=== PATIENT | male | born 1945 | race Caucasian/White ===

== ENCOUNTER 2018-03-25 23:44 | Observation (INO) ==
[2018-03-26 00:12] LABS: Basophils # 0.1 K/mcL (0.0-0.2); Basophils % 0.5 %; Eosinophils # 0.2 K/mcL (0.0-0.6); Eosinophils % 1.3 %; Hematocrit 48.7 % (37.5-50.1); Hemoglobin 17.3 g/dL (12.9-16.9); Immature Granulocytes % 0.4 % (0-4); Lymphocytes # 2.1 K/mcL (0.6-4.6); Lymphocytes % 12.2 %; Mean Corpuscular HGB Conc 35.5 g/dL (31.6-35.5); Mean Corpuscular Hemoglobin 29.9 pg (28.0-33.3); Mean Corpuscular Volume 84.3 fL (83.0-100.0); Mean Platelet Volume 10.5 fL (9.4-12.4); Monocytes # 1.5 K/mcL (0.0-1.3); Monocytes % 8.7 %; Neutrophils # 13.1 K/mcL (1.6-8.9); Platelet Count 237 K/mcL (140-400); Red Blood Count 5.78 M/mcL (4.19-5.50); Red Cell Distribution Width 12.8 % (11.5-14.5); Segmented Neutrophils % 76.9 %
[2018-03-26 00:33] LABS: BUN/Creatinine Ratio 13 (6-26); Blood Urea Nitrogen 17 mg/dL (8-23); Calcium 10.6 mg/dL (8.6-10.3); Carbon Dioxide 22 mEq/L (23-29); Chloride 97 mEq/L (98-107); Glucose 264 mg/dL (70-105); Osmolality,Calculated 291 (280-300); Sodium 135 mEq/L (136-145); eGFR For Non-African Americans 53 (> 60)
[2018-03-26 00:34] LABS: Troponin I < 0.03 ng/mL (< 0.04)
[2018-03-26] MEDS ORDERED: Ondansetron 4 MG/2 ML VIAL IVP ONE ×2 (01:21→02:40)
[2018-03-26] MEDS ORDERED: 0.9 % Sodium Chloride 1,000 ML IVC ONE (01:22)
--- NOTE | 2018-03-26 02:08 | Emergency Department Note ---
Disposition Clinical Impression: Abnormal ultrasound of gallbladder, Hyperbilirubinemia Nausea & vomiting Qualifiers: Vomiting type: unspecified Vomiting Intractability: unspecified Qualified Code( s): R11.2 - Nausea with vomiting, unspecified Disposition: Admitted As Inpatient Condition: Good Time of Disposition: 04:00 General Adult HPI - General Chief complaint: ED Chest Pain Stated complaint: cp/vomiting Time Seen by Provider: 03/26/18 00:28 Source: patient Limitations: no limitations Nursing Notes Reviewed: Yes Vital Signs Reviewed: Yes - History of Present Illness HPI Narrative: 73-year-old male history of CAD s/p stent 2009, diabetes presents an emergency department with complaining of chest pain and vomiting. States the symptoms started roughly 4 days ago reports of nausea with nonbilious nonbloody vomiting. Afterwards he began developing sharp burning sensation to the midsternal similar to his reflux. Sometimes it feels like something is stuck. He denies choking episode for eating anything abnormal. Nothing seems to make it better or worse. He states over the past several days he has been unable to keep anything down. Meals do not seem to make his pain worse. He does report some diarrhea as well. Denies any fever chills. No prior's abdominal surgeries. He denies any shortness of breath. He is unsure if this is similar to his prior myocardial infarction. He denies any history of blood clots, recent long-distance travel, hospitalization or surgery. Pain Scale: 8 - Related Data Home Medications Medication Instructions Recorded Confirmed Aspirin [Lo-Dose Aspirin EC] 81 mg PO DAILY 03/26/18 03/26/18 Benazepril HCl [Lotensin] 20 mg PO DAILY 03/26/18 03/26/18 Insulin ASPART [Novolog] 25 unit SQ QID 03/26/18 03/26/18 Insulin Glargine [Lantus] 35 unit SQ DAILY 03/26/18 03/26/18 Metoprolol [Lopressor] 25 mg PO DAILY 03/26/18 03/26/18 Simvastatin [Zocor] 10 mg PO DAILY 03/26/18 03/26/18 cloNIDine HCl [CloNIDine HCl] 0.1 mg PO DAILY 03/26/18 03/26/18 Allergies Allergy/AdvReac Type Severity Reaction Status Date / Time No Known Allergies Allergy Verified 03/25/18 23:53 All systems ED: reviewed and negative except as stated. Review of Systems: As Per HPI Constitutional: Denies: fever, chills, weakness Cardiovascular: Reports: chest pain. Denies: palpitations, dyspnea on exertion Respiratory: Denies: dyspnea Gastrointestinal: Reports: nausea, vomiting, diarrhea. Denies: abdominal pain, hematemesis, melena, hematochezia Genitourinary: Denies: urgency, dysuria Musculoskeletal: Denies: back pain Integumentary: Denies: rash Past Medical History - Past Medical History Attestation: Yes The following information was validated with the patient. Source: patient Medical history: Reports: cancer, CHF, coronary artery disease, diabetes, glaucoma, hypertension Surgical history: Reports: orthopedic, other Psychiatric history: Reports: no psych history - Social History Smoking Status: Former smoker Alcohol use: Reports: none Drug use: Reports: none Physical Exam - General Limitations: no limitations General appearance: alert, in no apparent distress, obese - Head Head exam: atraumatic, normocephalic, normal inspection - Eye Eye exam: Present: normal appearance, PERRL, EOMI. Absent: scleral icterus - ENT ENT exam: normal exam, normal oropharynx, mucous membranes moist - Neck Neck exam: Present: normal inspection, full ROM, trachea midline - Chest Chest inspection: Present: normal inspection, symmetric chest wall rise - Respiratory Respiratory exam: Present: normal lung sounds bilaterally. Absent: respiratory distress, wheezes - Cardiovascular Cardiovascular exam: Present: normal rhythm, tachycardia, normal heart sounds - Expanded Cardiovascular Exam Peripheral pulses: 2+: radial (R), radial (L) - Abdominal Exam Abdominal exam: Present: soft (Protuberant), Non-Tender, normal bowel sounds. Absent: tenderness, distention, guarding, rebound, rigidity, Godoy's sign, tenderness at McBurney's Point Abdominal tenderness: Absent: RUQ, epigastrium - Extremities Exam Extremities exam: Present: normal inspection, full ROM, normal capillary refill. Absent: tenderness, pedal edema - Back Exam Back exam: Present: normal inspection, full ROM. Absent: tenderness, CVA tenderness (R), CVA tenderness (L) - Neurological Exam Neurological exam: Present: alert, oriented X3 - Psychiatric Psychiatric exam: Present: normal affect, normal mood - Skin Skin exam: Present: warm, dry, intact, normal color. Absent: rash, cyanosis, diaphoresis Course Course Narrative: Patient presents with nonspecific complaints of nausea vomiting and associated chest discomfort. He has been unable to keep anything down including liquids over the past 4 days. He has had some associated diarrhea as well. No sick contacts or recent travel. No shortness of breath or abdominal pain. Not worsened after meals. On examination he is afebrile but tachycardic. His heart 's regular rate and rhythm. Abdomen is protuberant otherwise soft note extension or tenderness. Chest pain workup initiated. - Reevaluation(s) Reevaluation #1: EKG does not reveal any acute ischemic changes. Troponin is less than 0.03. He has some underlying renal insufficiency that appears at baseline. No significant electrolyte abnormalities. He does have a mild leukocytosis. Bedside ultrasound was performed in the presence of ED attending Dr. Salazar which revealed mildly thickened anterior gallbladder wall 4 mm and a large amount of gravel in the gallbladder. Negative sonographic Godoy sign. No pericholecystic fluid observed. Do not suspect acute cholecystitis as he does not have any abdominal discomfort, fever, or pain in the area. The nausea and vomiting could be caused by this or gastroenteritis. At this time do not suspect his symptoms to be cardiopulmonary in nature. Given his hyperbilirubinemia 1.4 in the absence of LFT or alk phos elevation, recommend an urgent formal ultrasound to better evaluate the gallbladder. CT scan would not be of benefit as he does not have any abdominal pain and would provide any additional information regarding the gallbladder. - Consultations Consultation #1: Spoke with on-call hospitalist reji Bowman to admit for nausea vomiting, abnormal gallbladder ultrasound and hyperbilirubinemia. Recommend formal ultrasound evaluation and likely surgical evaluation. Patient is not febrile and does not have any abdominal pain and godoy sign to suggest acute cholecystitis to warrant initiation of antibiotics at this time. No further orders at this time Vital Signs Temperature 97.9 F 03/25/18 23:49 Pulse Rate 113 03/25/18 23:49 Respiratory Rate 20 03/25/18 23:49 Blood Pressure 137/88 03/25/18 23:49 O2 Sat by Pulse Oximetry 95 03/25/18 23:49 Temperature 97.9 F 03/25/18 23:49 Pulse Rate 108 03/26/18 02:50 Respiratory Rate 16 03/26/18 04:41 Blood Pressure 106/86 03/26/18 04:41 O2 Sat by Pulse Oximetry 93 03/26/18 02:50 Oxygen Delivery Oxygen Delivery Room Air Medical Decision Making - MDM Narrative Medical decision making narrative: Patient was discussed with my attending physician who agrees with ED management and final disposition. They independently evaluated the patient. Please refer to their attestation to this encounter for additional information. This note was generated by [employer] voice recognition software and as a result grammatical or spelling errors may occur using this program. - Medical Records Medical records reviewed: Yes I reviewed the patient's medical records. - Lab Data Lab results reviewed: Yes I reviewed the patient's lab results. Result diagrams: 03/26/18 00:01 03/26/18 00:01 Lab Results 03/26/18 03/26/18 03/26/18 Range/Units 00:01 00:01 03:00 WBC 17.0 H (4.3-11.1) K/mcL RBC 5.78 H (4.19-5.50) M/mcL Hgb 17.3 H (12.9-16.9) g/dL Hct 48.7 (37.5-50.1) % MCV 84.3 (83.0-100.0) fL MCH 29.9 (28.0-33.3) pg MCHC 35.5 (31.6-35.5) g/dL RDW 12.8 (11.5-14.5) % Plt Count 237 (140-400) K/mcL MPV 10.5 (9.4-12.4) fL Immature Gran % 0.4 (0-4) % Seg Neutrophils % 76.9 % Lymphocytes % 12.2 % Monocytes % 8.7 % Eosinophils % 1.3 % Basophils % 0.5 % Neutrophils # 13.1 H (1.6-8.9) K/mcL Lymphocytes # 2.1 (0.6-4.6) K/mcL Monocytes # 1.5 H (0.0-1.3) K/mcL Eosinophils # 0.2 (0.0-0.6) K/mcL Basophils # 0.1 (0.0-0.2) K/mcL Sodium 135 L (136-145) mEq/L Potassium 4.0 (3.5-5.1) mEq/L Chloride 97 L (98-107) mEq/L Carbon Dioxide 22 L (23-29) mEq/L BUN 17 (8-23) mg/dL Creatinine 1.33 H (0.70-1.30) mg/dL Est GFR ( Amer) > 60 (> 60) Est GFR (Non-Af Amer) 53 L (> 60) BUN/Creatinine Ratio 13 (6-26) Glucose 264 H (70-105) mg/dL Calculated Osmolality 291 (280-300) Calcium 10.6 H (8.6-10.3) mg/dL Total Bilirubin 1.4 H (0.3-1.0) mg/dL Direct Bilirubin 0.3 H (0.0-0.2) mg/dL Indirect Bilirubin 1.1 (0.0-1.2) mg/dL AST 18 (13-39) Units/L ALT 18 (7-52) Units/L Alkaline Phosphatase 95 (34-104) Units/L Troponin I < 0.03 (< 0.04) ng/mL Serum Total Protein 6.8 (6.4-8.9) g/dL Albumin 4.3 (3.5-5.7) g/dL Globulin 2.5 (2.4-3.5) g/dL Albumin/Globulin Ratio 1.7 (1.1-2.2) Lipase 83 H (11-82) Units/L Urine Color Dark Yellow (Yellow) Urine Clarity Clear (Clear) Urine pH 6.0 (5.0-8.0) pH Units Ur Specific [place] 1.028 H (1.010-1.025) Urine Protein 30 H (Neg-Trace) mg/dL Urine Glucose (UA) 500 H (Normal) mg/dL Urine Ketones 40 H (Negative) mg/dL Urine Blood Negative (Negative) Urine Nitrite Negative (Negative) Urine Bilirubin Small H (Negative) Urine Urobilinogen Normal (Normal) mg/dL Ur Leukocyte Esterase Negative (Negative) Urine Microscopic RBC 5-15 H (0-3) per hpf Urine Microscopic WBC 0-3 (0-3) per hpf Ur Squamous Epith Cells Moderate H (None-Few) per lpf Urine Bacteria None Seen (None-Few) per hpf Hyaline Casts None Seen (None-Few) per lpf Ur Culture Indicated? NO (NO) - Radiology Data Radiology results reviewed: Yes I reviewed the patient's radiology results. Chest X-Ray 03/26/18 23:53 IMPRESSION: Stable mild cardiomegaly. Clear lungs. D/ / Adi Lizarraga MD / Adi Lizarraga MD Interpreting Provider: Adi Lizarraga MD - EKG Data EKG #1 EKG attestation: Yes I reviewed and interpreted this EKG. EKG results narrative: EKG performed 2350 tachycardia 115 beats per minute, old Q waves in inferior leads, no ST elevation or depression, AR interval 210, compared to prior EKG performed 05/23/2010 shows similar findings of a first-degree AV block AR interval 236, no acute ischemic changes. Q waves appears consistent prior EKG.
[2018-03-26 02:13] LABS: Lipase 83 Units/L (11-82)
--- NOTE | 2018-03-26 02:46 | Emergency Department Note ---
Disposition Clinical Impression: Abnormal ultrasound of gallbladder, Hyperbilirubinemia Nausea & vomiting Qualifiers: Vomiting type: unspecified Vomiting Intractability: unspecified Qualified Code( s): R11.2 - Nausea with vomiting, unspecified Disposition: Admitted As Inpatient Condition: Good General Adult HPI - General Chief complaint: ED Chest Pain Stated complaint: cp/vomiting Time Seen by Provider: 03/26/18 00:28 Source: patient Limitations: no limitations - History of Present Illness Pain Scale: 8 - Related Data Home Medications Medication Instructions Recorded Confirmed Aspirin [Lo-Dose Aspirin EC] 81 mg PO DAILY 03/26/18 03/26/18 Benazepril HCl [Lotensin] 20 mg PO DAILY 03/26/18 03/26/18 Ergocalciferol (VITAMIN D2) 50,000 unit PO MO 03/26/18 03/26/18 [Drisdol (50,000 Unit)] Insulin ASPART [Novolog] 30 unit SQ QID 03/26/18 03/26/18 Insulin DETEMIR [Levemir Flextouch] 35 unit SQ HS 03/26/18 03/26/18 Metoprolol Succinate [Toprol Xl] 25 mg PO DAILY 03/26/18 03/26/18 Simvastatin [Zocor] 10 mg PO DAILY 03/26/18 03/26/18 amLODIPine [Norvasc] 5 mg PO DAILY 03/26/18 03/26/18 cloNIDine HCl [CloNIDine HCl] 0.1 mg PO BID 03/26/18 03/26/18 Previous Rx's Medication Instructions Recorded Omeprazole [PriLOSEC] 20 mg PO DAILY@0630 #30 capsule. 03/27/18 Allergies Allergy/AdvReac Type Severity Reaction Status Date / Time No Known Allergies Allergy Verified 03/26/18 14:34 Past Medical History - Past Medical History Medical history: Reports: cancer, CHF, coronary artery disease, diabetes, glaucoma, hypertension Surgical history: Reports: orthopedic, other Psychiatric history: Reports: no psych history - Social History Smoking Status: Former smoker Alcohol use: Reports: none Drug use: Reports: none Physical Exam - General Limitations: no limitations General appearance: alert, in no apparent distress Course Vital Signs Temperature 97.9 F 03/25/18 23:49 Pulse Rate 113 03/25/18 23:49 Respiratory Rate 20 03/25/18 23:49 Blood Pressure 137/88 03/25/18 23:49 O2 Sat by Pulse Oximetry 95 03/25/18 23:49 Temperature 99.2 F 03/27/18 12:03 Pulse Rate 67 03/27/18 12:03 Respiratory Rate 18 03/27/18 12:03 Blood Pressure 124/75 03/27/18 12:03 O2 Sat by Pulse Oximetry 95 03/27/18 12:03 Oxygen Delivery Oxygen Delivery Room Air Medical Decision Making - Lab Data Result diagrams: 03/27/18 01:11 03/27/18 01:11 Lab Results 03/26/18 03/26/18 03/26/18 Range/Units 00:01 00:01 03:00 WBC 17.0 H (4.3-11.1) K/mcL RBC 5.78 H (4.19-5.50) M/mcL Hgb 17.3 H (12.9-16.9) g/dL Hct 48.7 (37.5-50.1) % MCV 84.3 (83.0-100.0) fL MCH 29.9 (28.0-33.3) pg MCHC 35.5 (31.6-35.5) g/dL RDW 12.8 (11.5-14.5) % Plt Count 237 (140-400) K/mcL MPV 10.5 (9.4-12.4) fL Immature Gran % 0.4 (0-4) % Seg Neutrophils % 76.9 % Lymphocytes % 12.2 % Monocytes % 8.7 % Eosinophils % 1.3 % Basophils % 0.5 % Neutrophils # 13.1 H (1.6-8.9) K/mcL Lymphocytes # 2.1 (0.6-4.6) K/mcL Monocytes # 1.5 H (0.0-1.3) K/mcL Eosinophils # 0.2 (0.0-0.6) K/mcL Basophils # 0.1 (0.0-0.2) K/mcL Sodium 135 L (136-145) mEq/L Potassium 4.0 (3.5-5.1) mEq/L Chloride 97 L (98-107) mEq/L Carbon Dioxide 22 L (23-29) mEq/L BUN 17 (8-23) mg/dL Creatinine 1.33 H (0.70-1.30) mg/dL Est GFR ( Amer) > 60 (> 60) Est GFR (Non-Af Amer) 53 L (> 60) BUN/Creatinine Ratio 13 (6-26) Glucose 264 H (70-105) mg/dL Calculated Osmolality 291 (280-300) Calcium 10.6 H (8.6-10.3) mg/dL Total Bilirubin 1.4 H (0.3-1.0) mg/dL Direct Bilirubin 0.3 H (0.0-0.2) mg/dL Indirect Bilirubin 1.1 (0.0-1.2) mg/dL AST 18 (13-39) Units/L ALT 18 (7-52) Units/L Alkaline Phosphatase 95 (34-104) Units/L Troponin I < 0.03 (< 0.04) ng/mL Serum Total Protein 6.8 (6.4-8.9) g/dL Albumin 4.3 (3.5-5.7) g/dL Globulin 2.5 (2.4-3.5) g/dL Albumin/Globulin Ratio 1.7 (1.1-2.2) Lipase 83 H (11-82) Units/L Urine Color Dark Yellow (Yellow) Urine Clarity Clear (Clear) Urine pH 6.0 (5.0-8.0) pH Units Ur Specific [place] 1.028 H (1.010-1.025) Urine Protein 30 H (Neg-Trace) mg/dL Urine Glucose (UA) 500 H (Normal) mg/dL Urine Ketones 40 H (Negative) mg/dL Urine Blood Negative (Negative) Urine Nitrite Negative (Negative) Urine Bilirubin Small H (Negative) Urine Urobilinogen Normal (Normal) mg/dL Ur Leukocyte Esterase Negative (Negative) Urine Microscopic RBC 5-15 H (0-3) per hpf Urine Microscopic WBC 0-3 (0-3) per hpf Ur Squamous Epith Cells Moderate H (None-Few) per lpf Urine Bacteria None Seen (None-Few) per hpf Hyaline Casts None Seen (None-Few) per lpf Ur Culture Indicated? NO (NO) Attestation Statement - Attestation Attestation: I examined this patient and my medical decision-making was reviewed with the Resident Physician. I agree with the documented findings, disposition and treatment plan as described except to the extent set forth below. He has had 3 days of nausea and vomiting with chest pain that started after the vomiting. No hematemesis. He is not really sure whether this is similar to his prior heart attack. Pain is not postprandial. He has been unable to keep food down and has had trouble keeping liquids down as well. Procedure, emergency bedside ultrasound of the gallbladder: Procedure performed by me, images obtained and interpreted by me. Multiple images of the gallbladder were obtained in the longitudinal and transverse planes showing a dilated gallbladder with a transverse diameter of approximately 5.5 cm. Gallbladder wall is mildly thickened a just over 4 mm. There is what appears to be a moderate amount of gravel in the neck of the gallbladder, although it does not shadow. Gallbladder mass is not excluded. Negative sonographic Godoy sign. The common bile duct was not well visualized. We attempted a volume assessment to assess for his hydration status, but were unable to get adequate images due to a large amount of overlying bowel gas interfering with visualization of the IVC.
[2018-03-26 02:53] LABS: Alanine Aminotransferase 18 Units/L (7-52); Albumin 4.3 g/dL (3.5-5.7); Albumin/Globulin Ratio 1.7 (1.1-2.2); Alkaline Phosphatase 95 Units/L (34-104); Aspartate Amino Transferase 18 Units/L (13-39); Bilirubin,Direct 0.3 mg/dL (0.0-0.2); Bilirubin,Indirect 1.1 mg/dL (0.0-1.2); Bilirubin,Total 1.4 mg/dL (0.3-1.0); Globulin 2.5 g/dL (2.4-3.5); Total Protein 6.8 g/dL (6.4-8.9)
[2018-03-26 03:10] LABS: Bilirubin,Urine Small (Negative); Blood,Urine Negative (Negative); Clarity,Urine Clear (Clear); Color,Urine Dark Yellow (Yellow); Glucose,Urine (UA) 500 mg/dL (Normal); Ketones,Urine 40 mg/dL (Negative); Leukocyte Esterase,Urine Negative (Negative); Nitrite,Urine Negative (Negative); Protein,Urine 30 mg/dL (Neg-Trace); Specific Gravity,Urine 1.028 (1.010-1.025); Urobilinogen,Urine Normal (Normal)
[2018-03-26 03:13] LABS: Bacteria,Urine None Seen per hpf (None-Few); Hyaline Casts,Urine None Seen per lpf (None-Few); Squamous Epithelial Cell,Urine Moderate per lpf (None-Few); WBC,Urine 0-3 per hpf (0-3)
--- NOTE | 2018-03-26 05:33 | Internal Med History&Physical ---
<DestinycarlosCesar - Last Filed: 03/26/18 06:54> Date of Encounter: 03/26/18 Time of Encounter: 05:31 Internal Medicine - H&P: HPI Chief complaint: N/V Admitted From: Home History of present illness: Mr. Maxwell is a 73 year old male with a PMH of hypertension, diastolic CHF , CAD status post cardiac stents in 2009, CKD stage III, GERD, and type 2 diabetes mellitus who presents complaining of chest pain, nausea, and vomiting for the past 4 days. Chest pain is located in the substernal and epigastric region and feels like a burning sensation. Nothing makes it better, he has been unable to keep any food or water down, and meals do not seem to make his pain worse. Emesis is non-bilious, non-bloody, and sometimes feels like it gets stuck in his esophagus. Patient has a history of acid reflux but denies previous EGD. He denies associated fever, chills, SOB, hematemesis, hematochezia, leg edema, recent illness, or history of choking in the past. Last colonoscopy was performed 10/10/15 which revealed diverticulosis and five transverse and ascending colon polyps. Past Med Surg Social Fam HX - Past Medical History Medical history: cancer, CHF, coronary artery disease, diabetes, glaucoma, hypertension Additional medical history: melanoma. sleep apnea Psychiatric history: no psych history - Past Surgical History Surgical History: orthopedic, other (shoulder, knee) Additional surgical history: heart cath with stent x1 in 2009 - Social History Smoking Status: Former smoker Alcohol use: none Drug use: none Activity Level: Independent ambulation - Family History Mother Hx Family Cardiac Disorders: Yes (CHF) Hx Family Endocrine Disorder: Yes (Diabetes) Father Hx Family Neurologic Disorders: Yes (CVA/ brain aneurysm) Internal Medicine - H&P: Meds Aspirin [Lo-Dose Aspirin EC] 81 mg PO DAILY 03/26/18 [History] Benazepril HCl [Lotensin] 20 mg PO DAILY 03/26/18 [History] Insulin ASPART [Novolog] 25 unit SQ QID 03/26/18 [History] Insulin Glargine [Lantus] 35 unit SQ DAILY 03/26/18 [History] Metoprolol Succinate [Toprol Xl] 25 mg PO DAILY 03/26/18 [History] Simvastatin [Zocor] 10 mg PO DAILY 03/26/18 [History] cloNIDine HCl [CloNIDine HCl] 0.1 mg PO DAILY 03/26/18 [History] 3 Allergy/AdvReac Type Severity Reaction Status Date / Time No Known Allergies Allergy Verified 03/25/18 23:53 All Systems PM: A 10-system review of systems was performed and is negative for pertinent findings except as documented above in the HPI. - Constitutional Constitutional: anorexia, no chills, no fatigue, no fever(s), no lethargy, no weakness, no weight gain, no weight loss - EENT Eyes: no blurry vision, no diplopia Nose, mouth and throat: dysphagia, no sinus pain, no sore throat - Cardiovascular Cardiovascular ROS IM: chest pain, no diaphoresis, no dyspnea, no orthopnea, no palpitations, no paroxysmal nocturnal dyspnea - Respiratory Respiratory: no cough, no dyspnea, no chest congestion - Gastrointestinal Gastrointestinal: abdominal pain, dyspepsia, dysphagia, heartburn, nausea, vomiting, no hematemesis, no hematochezia, no melena - Genitourinary Genitourinary ROS male: no nocturia, no urinary frequency, no urinary urgency - Musculoskeletal Musculoskeletal ROS IM: no arthralgias, no back pain, no numbness, no tingling - Integumentary Integumentary IM: no erythema, no new lesions, no rash - Neurological Neurological ROS: no confusion, no dizziness, no numbness, no tingling - Psychiatric Psychiatric: no anxiety, no depression - Endocrine Endocrine IM: no fatigue, no polydipsia, no polyphagia, no polyuria - Constitutional Vitals: Temp Pulse Resp BP Pulse Ox 97.9 F 108 16 106/86 93 03/25/18 23:49 03/26/18 02:50 03/26/18 04:41 03/26/18 04:41 03/26/18 02:50 General appearance: Present: cooperative, mild distress, A&O X 3, pleasant, obese, answers questions appropriately - Head Head exam: Present: atraumatic, normocephalic - Eye Eye exam: Present: PERRL, conjuntiva pink, sclera anicteric Pupils: Present: PERRL - ENT ENT exam: Present: mucous membranes dry, normal oropharynx - Neck Neck exam general surgery: Present: supple, trachea midline. Absent: lymphadenopathy - Respiratory Respiratory exam: Present: CTAB. Absent: accessory muscle use, rales, rhonchi, wheezes - Cardiovascular Cardiovascular exam: Present: RRR, +S1, +S2. Absent: diastolic murmur, gallop, rubs, systolic murmur - GI/Abdominal GI/Abdominal exam: Present: normal bowel sounds, soft, no peritoneal signs. Absent: distended, guarding, tenderness - Expanded GI/Abdominal Exam GI/Abdominal exam expanded: Absent: Godoy's sign - Extremities Exam Extremities exam: Present: normal capillary refill, normal inspection, warm, radial pulses palpable and symmetrical. Absent: calf tenderness, cyanotic, pedal edema - Back Exam Back exam: Present: normal inspection. Absent: paraspinal tenderness, tenderness - Neurological Exam Neurological exam: Present: alert, CN II-XII intact, oriented X3, no focal deficits. Absent: pronater drift, facial droop, speech deficit - Psychiatric Psychiatric exam: Present: normal affect, normal mood - Skin Skin exam: Present: dry, intact, normal color, warm Internal Med - H&P Results - Labs CBC & Chem 7: 03/26/18 00:01 03/26/18 00:01 - Pulse Oximetry Interpretation Digit-Finger O2 Sat by Pulse Oximetry: 93 (On room air) - EKG Data -: EKG Interpreted by Myself EKG shows normal: sinus rhythm Rate: tachycardia (HR 115 bpm, old Q waves in inferior leads, no ST elevation or depression, 1st degree AV block MD interval 210) - EKG Data Prior EKG available for review: yes When compared to previous EKG: there is no significant change - Impressions ITS Impressions Chest X-Ray 03/26/18 23:53 IMPRESSION: Stable mild cardiomegaly. Clear lungs. D/ / Adi Lizarraga MD / Adi Lizarraga MD Interpreting Provider: Adi Lziarraga MD - Assessment and plan (1) Chest pain, rule out acute myocardial infarction Current Visit: Yes Status: Acute Assessment and plan: Diabetic patient with CAD and HTN present with chest pain Initial troponin < 0.03 Trend serial troponins Lipid panel 11/18/17 WNL Continue ASA, statin, and beta leticia Telemetry monitoring Continue close monitoring (2) CAD (coronary artery disease) Current Visit: No Status: Chronic Assessment and plan: Patient had cardiac stent in 2009 Continue home meds Qualifiers: Coronary Disease-Associated Artery/Lesion type: [place] artery [place] vs. transplanted heart: [place] heart Associated angina: angina presence unspecified Qualified Code(s): I25.10 - Atherosclerotic heart disease of [place] coronary artery without angina pectoris (3) Diastolic CHF Current Visit: No Status: Chronic Assessment and plan: Not in acute exacerbation Echo 06/01/15 revealed LVEF 55-60%, mild distolic dysfunction of the LV, mildly enlarged left atrial size, mild pulmonic regurgitation Continue gentle hydration Measure daily weight, input and output Qualifiers: Heart failure chronicity: chronic Qualified Code(s): I50.32 - Chronic diastolic (congestive) heart failure (4) GERD (gastroesophageal reflux disease) Current Visit: Yes Status: Chronic Assessment and plan: Patient has a history of acid reflux but denies previous EGD. Continue PPI Speech therapy consult foe swallow evaluation due to patient feeling something getting caught in his throat Consider GI consult for EGD if symptoms persist/ worsen Qualifiers: Esophagitis presence: esophagitis presence not specified Qualified Code(s) : K21.9 - Gastro-esophageal reflux disease without esophagitis (5) Thickening of wall of gallbladder Current Visit: Yes Status: Acute Assessment and plan: Total bilirubin level 1.4 Bedside ultrasound of the gallbladder by the emergency room physician revealed a dilated gallbladder with a transverse diameter of approximately 5.5 cm. Gallbladder wall is mildly thickened a just over 4 mm. There is what appears to be a moderate amount of gravel in the neck of the gallbladder, although it does not shadow. Gallbladder mass is not excluded. Negative sonographic Godoy sign. The common bile duct was not well visualized. RUQ ultrasound pending Continue antiemetics (6) Diverticulosis Current Visit: No Status: Chronic Assessment and plan: Last colonoscopy was performed 10/10/15 which revealed diverticulosis and five transverse and ascending colon polyps. Qualifiers: Diverticulosis site: diverticulosis of large intestine Diverticulosis bleeding: diverticulosis without bleeding Qualified Code(s): K57.30 - Diverticulosis of large intestine without perforation or abscess without bleeding (7) DM type 2 (diabetes mellitus, type 2) Current Visit: Yes Status: Chronic Assessment and plan: HGB a1c level 7.4 on 10/31/17 Continue accucheck q6h while NPO Continue basal and high dose SSI Continue monitoring Qualifiers: Diabetes mellitus senior care insulin use: with senior care use Diabetes mellitus complication status: with kidney complications Diabetes mellitus complication detail: with chronic kidney disease Chronic kidney disease stage : stage 3 (moderate) Qualified Code(s): E11.22 - Type 2 diabetes mellitus with diabetic chronic kidney disease; N18.3 - Chronic kidney disease, stage 3 ( moderate); Z79.4 - joint terminal attack controller (current) use of insulin (8) HTN (hypertension) Current Visit: No Status: Chronic Assessment and plan: Continue home meds Qualifiers: Hypertension type: essential hypertension Qualified Code(s): I10 - Essential (primary) hypertension (9) CKD (chronic kidney disease), stage III Current Visit: Yes Status: Chronic Assessment and plan: Renal function at baseline Avoid nephrotoxins Continue gentle hydration (10) Obesity (BMI 30-39.9) Current Visit: No Status: Chronic Assessment and plan: Lifestyle modification (11) DVT prophylaxis Current Visit: Yes Status: Acute Assessment and plan: Heparin subQ TID - Time Spent With Patient Total time spent is greater than 50% in coordination of care (as documented) at patient's floor/unit and/or counseling patient: <Satnam Fitzgerald P - Last Filed: 03/26/18 07:23> Date of Encounter: 03/26/18 Internal Medicine - H&P: HPI History of present illness: Mr. Maxwell is a 73 year old male All Systems PM: A 10-system review of systems was performed and is negative for pertinent findings except as documented above in the HPI. - Constitutional Vitals: Temp Pulse Resp BP Pulse Ox 98.8 F 109 16 131/82 94 03/26/18 06:52 03/26/18 06:52 03/26/18 06:52 03/26/18 06:52 03/26/18 06:52 Internal Med - H&P Results - Labs CBC & Chem 7: 03/26/18 00:01 03/26/18 00:01 - Impressions ITS Impressions Chest X-Ray 03/26/18 23:53 IMPRESSION: Stable mild cardiomegaly. Clear lungs. D/ / Adi Lizarraga MD / Adi Lizarraga MD Interpreting Provider: Adi Lizarraga MD - Attending Attestation I have seen the patient and performed my own history and physical examination. I have discussed the case with the admitting resident, and I agree with his assessment and plan of care as documented in his H&P. Briefly, patient admitted for nausea, vomiting, and epigastric/chest pain. We will admit for observation. Start NPO, IV PPI, and PRN IV zofran. Will obtain full RUQ ultrasound. Will trend cardiac enzymes and place him on telemetry. Continue home medications. Start accucheck and high dose SSI Q6H due to hyperglycemia. Consider GI consult if symptoms do not improve with conservative treatment. On IVF, but will monitor fluid status closely given history of CHF. Patient is in no distress at this time. - Assessment and plan (1) Chest pain, rule out acute myocardial infarction Current Visit: Yes Status: Acute (2) Diastolic CHF Current Visit: No Status: Chronic Qualifiers: Heart failure chronicity: chronic Qualified Code(s): I50.32 - Chronic diastolic (congestive) heart failure (3) GERD (gastroesophageal reflux disease) Current Visit: Yes Status: Chronic Qualifiers: Esophagitis presence: esophagitis presence not specified Qualified Code(s) : K21.9 - Gastro-esophageal reflux disease without esophagitis (4) Obesity (BMI 30-39.9) Current Visit: No Status: Chronic (5) Thickening of wall of gallbladder Current Visit: Yes Status: Acute (6) Diverticulosis Current Visit: No Status: Chronic Qualifiers: Diverticulosis site: diverticulosis of large intestine Diverticulosis bleeding: diverticulosis without bleeding Qualified Code(s): K57.30 - Diverticulosis of large intestine without perforation or abscess without bleeding (7) HTN (hypertension) Current Visit: No Status: Chronic Qualifiers: Hypertension type: essential hypertension Qualified Code(s): I10 - Essential (primary) hypertension (8) CAD (coronary artery disease) Current Visit: No Status: Chronic Qualifiers: Coronary Disease-Associated Artery/Lesion type: [place] artery [place] vs. transplanted heart: [place] heart Associated angina: angina presence unspecified Qualified Code(s): I25.10 - Atherosclerotic heart disease of [place] coronary artery without angina pectoris (9) CKD (chronic kidney disease), stage III Current Visit: Yes Status: Chronic (10) DM type 2 (diabetes mellitus, type 2) Current Visit: Yes Status: Chronic Qualifiers: Diabetes mellitus senior care insulin use: with ferry terminal agent use Diabetes mellitus complication status: with kidney complications Diabetes mellitus complication detail: with chronic kidney disease Chronic kidney disease stage : stage 3 (moderate) Qualified Code(s): E11.22 - Type 2 diabetes mellitus with diabetic chronic kidney disease; N18.3 - Chronic kidney disease, stage 3 ( moderate); Z79.4 - joint terminal attack controller (current) use of insulin (11) DVT prophylaxis Current Visit: Yes Status: Acute - Time Spent With Patient Total time spent is greater than 50% in coordination of care (as documented) at patient's floor/unit and/or counseling patient:
[2018-03-26] MEDS ORDERED: Naloxone 0.4 MG/ML INJ IVP PRN (06:17)
[2018-03-26] MEDS ORDERED: Aspirin 325 MG TABLET PO ONE (06:17)
[2018-03-26] MEDS ORDERED: *HR* Dextrose 50 % in Water (Syg) 50 ML SYRINGE IVP PRN (06:17)
[2018-03-26] MEDS ORDERED: Ondansetron 4 MG/2 ML VIAL IVP PRN (06:17)
[2018-03-26] MEDS ORDERED: Acetaminophen 325 MG TABLET PO PRN (06:17)
[2018-03-26] MEDS ORDERED: Dextrose Gel 15 GM/37.5 ML TUBE PO PRN ×2 (06:17)
[2018-03-26] MEDS ORDERED: Nitroglycerin 0.4 MG TAB.SUBL SL PRN (06:17)
[2018-03-26] MEDS ORDERED: D5% in Water 1,000 ML IVC PRN (06:17)
[2018-03-26 07:32] LABS: INR 1.1; Prothrombin Time 12.8 Seconds (9.4-12.1)
[2018-03-26] MEDS: Pantoprazole 40 MG VIAL IVP SCH ×2 (07:46→17:03)
[2018-03-26] MEDS: 0.9 % Sodium Chloride 1,000 ML IVC SCH (07:46)
[2018-03-26] MEDS: Lisinopril 20 MG TABLET PO SCH (09:18)
[2018-03-26] MEDS: Metoprolol XL (24 HR) Succ 25 MG TAB.ER.24H PO SCH (09:18)
[2018-03-26] MEDS: cloNIDine HCl 0.1 MG TABLET PO SCH (09:18)
[2018-03-26] MEDS: Insulin LISPRO 300 UNITS/3 ML VIAL SQ SCH ×3 (09:19→18:19)
[2018-03-26] MEDS: *HR* Heparin 5,000 UNIT/ML VIAL SQ SCH ×2 (13:00→21:03)
--- NOTE | 2018-03-26 18:11 | Electrocardiograph Report ---
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
[2018-03-26] MEDS ORDERED: Insulin LISPRO 300 UNITS/3 ML VIAL SQ SCH (21:00)
[2018-03-26] MEDS ORDERED: Insulin DETEMIR 100 UNIT/ML X5UNITS SQ SCH (21:00)
[2018-03-27 01:40] LABS: Basophils % 0.3 %; Eosinophils # 0.3 K/mcL (0.0-0.6); Eosinophils % 2.3 %; Hematocrit 44.3 % (37.5-50.1); Hemoglobin 15.5 g/dL (12.9-16.9); Immature Granulocytes % 0.3 % (0-4); Lymphocytes # 2.4 K/mcL (0.6-4.6); Mean Corpuscular Hemoglobin 30.6 pg (28.0-33.3); Mean Corpuscular Volume 87.5 fL (83.0-100.0); Mean Platelet Volume 11.2 fL (9.4-12.4); Monocytes # 1.2 K/mcL (0.0-1.3); Monocytes % 10.2 %; Neutrophils # 7.6 K/mcL (1.6-8.9); Platelet Count 179 K/mcL (140-400); Red Blood Count 5.06 M/mcL (4.19-5.50); Red Cell Distribution Width 12.8 % (11.5-14.5); Segmented Neutrophils % 65.9 %
[2018-03-27 01:59] LABS: Albumin 3.6 g/dL (3.5-5.7); Albumin/Globulin Ratio 1.6 (1.1-2.2); Bilirubin,Direct 0.3 mg/dL (0.0-0.2); Bilirubin,Total 1.3 mg/dL (0.3-1.0); Calcium 8.9 mg/dL (8.6-10.3); Globulin 2.2 g/dL (2.4-3.5); Magnesium 1.5 mg/dL (1.6-2.6); Potassium 3.8 mEq/L (3.5-5.1); Total Protein 5.8 g/dL (6.4-8.9)
[2018-03-27] MEDS: *HR* Heparin 5,000 UNIT/ML VIAL SQ SCH (05:08)
[2018-03-27] MEDS: Pantoprazole 40 MG VIAL IVP SCH (05:09)
[2018-03-27] MEDS ORDERED: 0.9 % Sodium Chloride 1,000 ML ONE (06:16)
[2018-03-27] MEDS: 0.9 % Sodium Chloride 1,000 ML IVC SCH (06:19)
[2018-03-27] MEDS: cloNIDine HCl 0.1 MG TABLET PO SCH (08:22)
[2018-03-27] MEDS: Metoprolol XL (24 HR) Succ 25 MG TAB.ER.24H PO SCH (08:23)
[2018-03-27] MEDS: Lisinopril 20 MG TABLET PO SCH (08:23)
[2018-03-27] MEDS: Insulin LISPRO 300 UNITS/3 ML VIAL SQ SCH ×2 (08:34→12:39)
[2018-03-27] MEDS ORDERED: Aspirin Enteric Coated 81 MG Tablet PO SCH (09:00)
[2018-03-27 12:08] VITALS: BP 124/75
--- NOTE | 2018-03-27 14:21 | Discharge Summary ---
- NOTES TO OUTPATIENT PROVIDER Notes to Outpatient Provider: Epigastric pain, nausea, vomiting- unclear etiology; resolved now; Date of Encounter: 03/27/18 Time of Encounter: 14:21 - Discharge Diagnosis (1) Epigastric pain Priority: Primary Status: Acute (2) Diastolic CHF Priority: Secondary Status: Chronic Qualifiers: Heart failure chronicity: chronic Qualified Code(s): I50.32 - Chronic diastolic (congestive) heart failure (3) GERD (gastroesophageal reflux disease) Priority: Secondary Status: Chronic Qualifiers: Esophagitis presence: esophagitis presence not specified Qualified Code(s) : K21.9 - Gastro-esophageal reflux disease without esophagitis (4) Thickening of wall of gallbladder Priority: Primary Status: Chronic (5) HTN (hypertension) Priority: Secondary Status: Chronic Qualifiers: Hypertension type: essential hypertension Qualified Code(s): I10 - Essential (primary) hypertension (6) CAD (coronary artery disease) Priority: Secondary Status: Chronic Qualifiers: Coronary Disease-Associated Artery/Lesion type: [place] artery [place] vs. transplanted heart: [place] heart Associated angina: without angina Qualified Code(s): I25.10 - Atherosclerotic heart disease of [place] coronary artery without angina pectoris (7) CKD (chronic kidney disease), stage III Priority: Secondary Status: Chronic (8) DM type 2 (diabetes mellitus, type 2) Priority: Secondary Status: Chronic Qualifiers: Diabetes mellitus [facility] insulin use: with [facility] use Diabetes mellitus complication status: with kidney complications Diabetes mellitus complication detail: with chronic kidney disease Chronic kidney disease stage : stage 3 (moderate) Qualified Code(s): E11.22 - Type 2 diabetes mellitus with diabetic chronic kidney disease; N18.3 - Chronic kidney disease, stage 3 ( moderate); Z79.4 - care home (current) use of insulin Hospital course: Mr. Maxwell is a 73 year old male with the above medical problems, who was admitted with epigastric pain, nausea and vomiting. Bedside ultrasound in the emergency room showed dilated gallbladder, Gallbladder wall is mildly thickened a just over 4 mm, moderate amount of gravel in the neck of the gallbladder. Initial EKG and telemetry monitoring where unremarkable. Serial troponins are flat and adynamic. Patient was noted to have mildly elevated serum lipase at admission at 83, which improved by the next day. He tolerated oral diet and all his symptoms resolved. Right upper quadrant ultrasound revealed thickened and edematous gallbladder without gallstones. Patient is currently medically stable for discharge with outpatient follow-up. Discharge discussed with: patient, nurse - Time Spent with Patient Total time spent providing and/or coordinating discharge services: Greater than 30 minutes (45 min) - Discharge Medications Prescriptions: Omeprazole [PriLOSEC] 20 mg PO DAILY@0630 #30 capsule. Home Medications: Aspirin [Lo-Dose Aspirin EC] 81 mg PO DAILY 03/26/18 [History] Benazepril HCl [Lotensin] 20 mg PO DAILY 03/26/18 [History] Ergocalciferol (VITAMIN D2) [Drisdol (50,000 Unit)] 50,000 unit PO MO 03/26/18 [ History] Insulin ASPART [Novolog] 30 unit SQ QID 03/26/18 [History] Insulin DETEMIR [Levemir Flextouch] 35 unit SQ HS 03/26/18 [History] Metoprolol Succinate [Toprol Xl] 25 mg PO DAILY 03/26/18 [History] Simvastatin [Zocor] 10 mg PO DAILY 03/26/18 [History] amLODIPine [Norvasc] 5 mg PO DAILY 03/26/18 [History] cloNIDine HCl [CloNIDine HCl] 0.1 mg PO BID 03/26/18 [History] Omeprazole [PriLOSEC] 20 mg PO DAILY@0630 #30 capsule. 03/27/18 [Rx] Allergies/Adverse Reactions: 3 Allergy/AdvReac Type Severity Reaction Status Date / Time No Known Allergies Allergy Verified 03/26/18 14:34 Date of admission: 03/26/18 04:07 Primary care physician: Micky Roman Discharging clinician: Cece Bales Anticipated date of discharge: 03/27/18 - Constitutional Vitals: Temp Pulse Resp BP Pulse Ox 99.2 F 67 18 124/75 95 03/27/18 12:03 03/27/18 12:03 03/27/18 12:03 03/27/18 12:03 03/27/18 12:03 General appearance: Present: cooperative, A&O X 3, pleasant, obese, answers questions appropriately - Cardiovascular Cardiovascular exam: Present: RRR, +S1, +S2. Absent: diastolic murmur, gallop, rubs, systolic murmur - Patient Status Disposition: Home, Self-Care Condition: Good Functional capacity at discharge: independent ambulation Overall status at discharge: patient is progressing back to baseline - Discharge Instructions Follow Up With: Micky Roman DO [Primary Care Provider] - 03/30/18 11:15 am Additional Instructions: F/up with PCP in 1-2 weeks - Diet and Activity Activity: increase activity as tolerated Diet: diabetic diet, low fat, low cholesterol, low salt diet
== END 2018-03-27 16:15 | disposition home or self-care (01) ==
LOC: EMEROO 23:44 → 3NENU 23:44 → SUATTDRO 03-26 04:07 → 3NENU 03-26 05:23
PROVIDERS: ADMIT Family Medicine; ATTEND Internal Medicine